=== PATIENT | female | born 1975 | race Caucasian/White ===

== ENCOUNTER → 2016-08-14 | Outpatient (CLI) | payer BC ==
[~2016-08-14] MED LIST: ACAR25TA9 PO; AMOX1TAB64 PO; CITA20TA9 PO; CYCL10TA50 PO; DICY20TA29 PO; DISU250T2 PO; ESTR1PAT10 TP; ESTR1PAT25 TD; ESZO3TAB9 PO; FLUO40CA9 PO; GABA300C10 PO; GADOBUTROL 10 MMOL/10 ML PFS ONE; HYDR-3240 PO; HYDR15SO3 PO; HYDR1TAB12 PO; LAMO25TA PO; LEVE250T28 PO; LEVE500T53 PO; LISI5TAB7 PO; LITH150C PO; LITH300T3 PO; LORA1TAB PO; MAGN100T6 PO; MAGNESIUM OTC; MED FOR RESTLESS LEG; MULT-658 PO; OMEP40CA6 PO; OXYC-302 PO; OXYC500S PO; PARO20TA4 PO; POTA20PI5 PO; POTASSIUM OTC; PROC10TA78 PO; PROM25TA10 PO; QUET100T4 PO; QUET400T4 PO; SULF1TAB24 PO; SUMA25TA4 PO; TRAM50TA2 PO; TRAZ50TA18 PO; UBID1CAP18 PO; VITA1TAB26 PO; ZOLP10TA PO; [UNRECOGNIZED DRUG - CODE] PO; [UNRECOGNIZED DRUG - OTHER]
== END | disposition home or self-care (01) ==
LOC: CFH 10:00
PROVIDERS: ATTEND Neurological Surgery
DX: D43.4 Neoplasm of uncertain behavior of spinal cord (principal); M48.05 Spinal stenosis, thoracolumbar region; M51.25 Other intervertebral disc displacement, thoracolumbar region; M47.895 Other spondylosis, thoracolumbar region
CPT/HCPCS: 72158; A9585

== ENCOUNTER 2017-06-18 18:45 | Emergency (ER) | payer BC ==
[~2017-06-18] VITALS: Ht 165.1 cm; Wt 94.2 kg
[~2017-06-18 18:45] MED LIST changes: +ESZO3TAB28 PO; -ESZO3TAB9 PO; -GADOBUTROL 10 MMOL/10 ML PFS ONE
[2017-06-18] MEDS ORDERED: KETOROLAC 30 MG/1 ML IM ONE (20:00)
[2017-06-18] MEDS ORDERED: METHOCARBAMOL 750 MG TABLET PO ONE (20:00)
[2017-06-18] MEDS ORDERED: HYDROcodone/APAP 5/325 TABLET PO ONE (20:00)
[2017-06-18] MEDS ORDERED: KETOROLAC 30 MG/1 ML ONE (20:08)
[2017-06-18] MEDS ORDERED: METHOCARBAMOL 750 MG TABLET ONE (20:08)
[2017-06-18] MEDS ORDERED: HYDROcodone/APAP 5/325 TABLET ONE (20:08)
[2017-06-18] MEDS ORDERED: HYDR25CA PO (20:24)
[2017-06-18] MEDS ORDERED: DULO30CA2 PO (20:24)
[2017-06-18] MEDS ORDERED: TOPAMAX PO (20:24)
[2017-06-18 20:41] LABS: BASOPHILS # (AUTO) 0.07 x10^3/uL (0-0.1); BASOPHILS % (AUTO) 1 % (0-1); EOSINOPHILS # (AUTO) 0.16 x10^3/uL (0-0.4); EOSINOPHILS % (AUTO) 2 % (1-7); LYMPHOCYTES # (AUTO) 2.68 x10^3/uL (1-3.4); LYMPHOCYTES % (AUTO) 29 % (22-44); MD NO; MEAN CORPUSCULAR HEMOGLOBIN 28.2 pg (27.0-34.8); MEAN CORPUSCULAR HGB CONC 32.9 g/dL (32.4-35.8); MEAN CORPUSCULAR VOLUME 85.9 fL (80-100); MEAN PLATELET VOLUME 6.7 fL (7.4-10.4); MONOCYTES # (AUTO) 0.62 x10^3/uL (0.2-0.8); MONOCYTES % (AUTO) 7 % (2-9); NEUTROPHILS % (AUTO) 61 % (42-75); PLATELET COUNT 331 x10^3/uL (130-400); RED BLOOD COUNT 4.14 x10^6/uL (3.82-5.3); RED CELL DISTRIBUTION WIDTH 20.2 % (9.6-15.2)
[2017-06-18 20:50] LABS: ANION GAP 8 mmol/L (5-15); CALCIUM 8.4 mg/dL (8.5-10.1); CHLORIDE 112 mmol/L (98-107); CREATININE 0.68 mg/dL (0.55-1.02)
[2017-06-18] MEDS ORDERED: GADOBUTROL 10 MMOL/10 ML PFS ONE (21:14)
[2017-06-18 22:15] VITALS: BP 127/79
== END 2017-06-18 22:23 | disposition home or self-care (01) ==
LOC: ED 22:21
DX: M51.16 Intervertebral disc disorders with radiculopathy, lumbar region (principal); K21.9 Gastro-esophageal reflux disease without esophagitis; E78.00 Pure hypercholesterolemia, unspecified; G43.909 Migraine, unspecified, not intractable, without status migrainosus; R20.0 Anesthesia of skin; R53.1 Weakness
CPT/HCPCS: 36415; 72110; 72158; 80048; 85025; 96372; 99285; A9585; J1885; J7512

== ENCOUNTER → 2017-07-26 | Outpatient (CLI) | payer BC ==
[~2017-07-26] MED LIST changes: +DULO30CA2 PO; +HYDR25CA PO; +TOPAMAX PO; +TRAZ-136 PO; -TRAZ50TA18 PO
== END | disposition home or self-care (01) ==
LOC: RAD 15:24
PROVIDERS: ATTEND Neurological Surgery
DX: Z01.812 Encounter for preprocedural laboratory examination (principal); M51.26 Other intervertebral disc displacement, lumbar region; R07.9 Chest pain, unspecified
CPT/HCPCS: 71046

== ENCOUNTER 2018-02-12 16:07 | Emergency (ER) | payer BC, OTHER ==
[~2018-02-12] VITALS: Ht 165.1 cm; Wt 92.3 kg
[~2018-02-12 16:07] MED LIST changes: -TRAZ-136 PO; +TRAZ50TA66 PO
[2018-02-12 16:19] VITALS: BP 146/104
[2018-02-12] MEDS ORDERED: HYDROmorphone 2 MG/ML, 1ML ONE (16:35)
[2018-02-12] MEDS ORDERED: PROMETHAZINE 25 MG/ML, 1ML ONE (16:35)
[2018-02-12] MEDS ORDERED: HYDROmorphone 1 MG/ML, 1ML IM ONE (17:00)
[2018-02-12] MEDS ORDERED: PROMETHAZINE 25 MG/ML, 1ML IM ONE (17:00)
[2018-02-12] MEDS ORDERED: HYDROmorphone 2 MG/ML, 1ML IVPush PRN (17:00)
[2018-02-12] MEDS ORDERED: GADOBUTROL 10 MMOL/10 ML PFS ONE (17:31)
== END 2018-02-12 19:00 | disposition home or self-care (01) ==
LOC: ED 17:46
DX: M51.36 Other intervertebral disc degeneration, lumbar region (principal); K21.9 Gastro-esophageal reflux disease without esophagitis; F31.9 Bipolar disorder, unspecified; G89.29 Other chronic pain; E78.00 Pure hypercholesterolemia, unspecified; G40.909 Epilepsy, unspecified, not intractable, without status epilepticus; F17.200 Nicotine dependence, unspecified, uncomplicated; Z90.89 Acquired absence of other organs; Z90.49 Acquired absence of other specified parts of digestive tract; Z90.710 Acquired absence of both cervix and uterus
CPT/HCPCS: 72158; 96372; 96374; 99284; A9585; J1170; J2550

== ENCOUNTER 2018-08-12 08:39 | Emergency (ER) | payer OTHER ==
[~2018-08-12] VITALS: Ht 165.1 cm; Wt 81.5 kg
[~2018-08-12 08:39] MED LIST changes: +CEFD300C37 PO; -HYDR1TAB12 PO; +HYDR1TAB13 PO; -LAMO25TA PO; +LAMO25TA9 PO
--- NOTE | 2018-08-12 09:10 | NUR ---
FIRST CONTACT WITH PT: Pt c/o "a cyst on my butt crack that is painful and causing pain to have a bowel movement." NADN. Pt requests to use the restroom UA cup provided. Pt ambulates with steady gait and balance to restroom and back to room. Pt provided gown and sheet. Call light within reach.
[2018-08-12] MEDS ORDERED: Vitamin D (09:27)
[2018-08-12] MEDS ORDERED: Potassium (09:27)
[2018-08-12] MEDS ORDERED: Wellbutrin (09:27)
[2018-08-12] MEDS ORDERED: [UNRECOGNIZED DRUG - OTHER] (09:27)
[2018-08-12] MEDS ORDERED: Lasix (09:27)
[2018-08-12] MEDS ORDERED: Iron (09:27)
[2018-08-12] MEDS ORDERED: SODIUM CHLORIDE FLUSH 10ML SYR IVF ONE (10:00)
[2018-08-12 10:23] LABS: MEAN CORPUSCULAR HEMOGLOBIN 30.9 pg (27.0-34.8); MEAN CORPUSCULAR HGB CONC 32.4 g/dL (32.4-35.8); MEAN CORPUSCULAR VOLUME 95.2 fL (80-100); MEAN PLATELET VOLUME 8.2 fL (7.4-10.4); PLATELET COUNT 227 x10^3/uL (130-400); RED BLOOD COUNT 4.39 x10^6/uL (3.82-5.3); RED CELL DISTRIBUTION WIDTH 23.5 % (9.6-15.2)
[2018-08-12 10:28] LABS: ALBUMIN 3.3 g/dL (3.4-5.0); ANION GAP 6 mmol/L (5-15); CALCIUM 9.3 mg/dL (8.5-10.1); CHLORIDE 107 mmol/L (98-107)
[2018-08-12 10:33] LABS: ALANINE AMINOTRANSFERASE 14 U/L (12-78); BILIRUBIN,TOTAL 0.3 mg/dL (0.2-1.0); CREATININE 0.79 mg/dL (0.55-1.02); TOTAL PROTEIN 7.3 g/dL (6.4-8.2)
[2018-08-12 10:40] LABS: ALKALINE PHOSPHATASE 71 U/L (45-117)
--- NOTE | 2018-08-12 10:46 | NUR ---
Pt transported on gurney to CT with both bedrails up and NADN.
[2018-08-12 10:53] LABS: BASOPHILS # (AUTO) 0.11 x10^3/uL (0-0.1); BASOPHILS % (AUTO) 1 % (0-1); EOSINOPHILS # (AUTO) 0.11 x10^3/uL (0-0.4); EOSINOPHILS % (AUTO) 1 % (1-7); LYMPHOCYTES # (AUTO) 1.55 x10^3/uL (1-3.4); LYMPHOCYTES % (AUTO) 14 % (22-44); MD SCAN; MONOCYTES % (AUTO) 7 % (2-9); NEUTROPHILS # (AUTO) 8.69 x10^3/uL (1.8-6.8); NEUTROPHILS % (AUTO) 77 % (42-75)
[2018-08-12] MEDS ORDERED: LIDOCAINE-MPF 1%, 2ML ONE (11:12)
[2018-08-12] MEDS ORDERED: HYDROmorphone 2 MG/ML, 1ML ONE (11:12)
[2018-08-12] MEDS ORDERED: LIDOCAINE 2%, 20ML SQ ONE (11:30)
[2018-08-12] MEDS ORDERED: HYDROmorphone 2 MG/ML, 1ML IM ONE (11:30)
--- NOTE | 2018-08-12 12:12 | NUR ---
Patient given discharge instructions and they have confirmed that they understand the instructions. Patient ambulatory with steady gait. Pt left with all d/c paperwork, prescription, and all personal belongings, and packing.
[2018-08-12 12:16] VITALS: BP 117/73
[2018-08-12] MEDS ORDERED: OMNIPAQUE 350 MG/ML, 100ML BOTTLE ONE (15:36)
== END 2018-08-12 12:18 | disposition home or self-care (01) ==
LOC: ED 10:46
DX: L05.01 Pilonidal cyst with abscess (principal); E78.00 Pure hypercholesterolemia, unspecified; G43.909 Migraine, unspecified, not intractable, without status migrainosus; G40.909 Epilepsy, unspecified, not intractable, without status epilepticus; K21.9 Gastro-esophageal reflux disease without esophagitis; Z90.49 Acquired absence of other specified parts of digestive tract
CPT/HCPCS: 10080; 36415; 72193; 80053; 84703; 85025; 99284; Q9967

== ENCOUNTER 2018-08-14 13:20 | Emergency (ER) | payer OTHER ==
[~2018-08-14] VITALS: Ht 165.1 cm; Wt 81.1 kg
[~2018-08-14 13:20] MED LIST changes: +Iron; +Lasix; +Potassium; +Vitamin D; +Wellbutrin; +[UNRECOGNIZED DRUG - OTHER]
[2018-08-14 13:44] VITALS: BP 136/95
--- NOTE | 2018-08-14 14:28 | NUR ---
WOUND CLEANSED AND BANDAGED W/ BACITRACIN DRESSING
== END 2018-08-14 14:31 | disposition home or self-care (01) ==
LOC: ED 14:30
DX: L02.415 Cutaneous abscess of right lower limb (principal); K21.9 Gastro-esophageal reflux disease without esophagitis; E78.00 Pure hypercholesterolemia, unspecified; G40.909 Epilepsy, unspecified, not intractable, without status epilepticus; Z90.49 Acquired absence of other specified parts of digestive tract
CPT/HCPCS: 99283

== ENCOUNTER 2018-09-23 15:51 | Emergency (ER) | payer OTHER ==
[~2018-09-23] VITALS: Ht 165.1 cm; Wt 79.0 kg
[2018-09-23] MEDS ORDERED: FAMOTIDINE 20 MG/2 ML IVP ONE (16:30)
[2018-09-23] MEDS ORDERED: SODIUM CHLORIDE 0.9% 1,000ML IVBOLUS ONE (16:30)
[2018-09-23] MEDS ORDERED: PROMETHAZINE 25 MG/ML, 1ML IM ONE (16:30)
[2018-09-23 16:41] LABS: BASOPHILS # (AUTO) 0.03 x10^3/uL (0-0.1); BASOPHILS % (AUTO) 1 % (0-1); EOSINOPHILS % (AUTO) 2 % (1-7); LYMPHOCYTES # (AUTO) 1.99 x10^3/uL (1-3.4); LYMPHOCYTES % (AUTO) 29 % (22-44); MD NO; MEAN CORPUSCULAR HEMOGLOBIN 32.5 pg (27.0-34.8); MEAN CORPUSCULAR HGB CONC 33.5 g/dL (32.4-35.8); MEAN CORPUSCULAR VOLUME 97.2 fL (80-100); MEAN PLATELET VOLUME 7.3 fL (7.4-10.4); MONOCYTES # (AUTO) 0.55 x10^3/uL (0.2-0.8); MONOCYTES % (AUTO) 8 % (2-9); NEUTROPHILS # (AUTO) 4.13 x10^3/uL (1.8-6.8); NEUTROPHILS % (AUTO) 61 % (42-75); PLATELET COUNT 169 x10^3/uL (130-400); RED BLOOD COUNT 4.33 x10^6/uL (3.82-5.3)
[2018-09-23 16:53] LABS: ALBUMIN 3.6 g/dL (3.4-5.0); ANION GAP 13 mmol/L (5-15); CALCIUM 9.3 mg/dL (8.5-10.1); CHLORIDE 103 mmol/L (98-107); CREATININE 0.67 mg/dL (0.55-1.02)
--- NOTE | 2018-09-23 17:45 | NUR ---
PATENT ENGINEER: PT TO ROOM FROM [facility]UC[facility]
--- NOTE | 2018-09-23 18:00 | NUR ---
"I'VE BEEN VOMITING SINCE LAST SUNDAY. I'VE VOMITED 3 TIMES AND A LOT OF DIARRHEA IN THE LAST 24 HOURS. I CAN'T COUNT HOW MANY TIMES I HAD DIARRHEA." DENIES RECENT ABX USE/TRAVEL OR HX OF INFECTIPIUS DIARRHEA HR 120, TEMP 99. PLACED ON MONITOR TO PLACE PIV SHORTLY
[2018-09-23] MEDS ORDERED: PROMETHAZINE 25 MG/ML, 1ML ONE (18:10)
[2018-09-23] MEDS ORDERED: FAMOTIDINE 20 MG/2 ML ONE (18:10)
--- NOTE | 2018-09-23 18:29 | NUR ---
PIV STARTED-MEDICATED PER EMAR VITALS UPDATED-HR NOW 80 PROVIDED WITH ESTIMATED POC
--- NOTE | 2018-09-23 18:39 | NUR ---
STOOL SAMPLE COLLECTED, PATIENT UNABLE TO VOID
--- NOTE | 2018-09-23 18:55 | NUR ---
REPORT TO RUIZ CATALAN
--- NOTE | 2018-09-23 18:56 | NUR ---
ASSUMED CARE OF PATIENT.
--- NOTE | 2018-09-23 18:59 | NUR ---
PT REQUESTING PAIN MEDS FOR LEFT SIDED NECK, SHOULDER PAIN. DR SARMIENTO AWARE. AWAITING NEW ORDERS.
[2018-09-23] MEDS ORDERED: CYCLOBENZAPRINE 10 MG TABLET PO ONE (19:00)
[2018-09-23] MEDS ORDERED: KETOROLAC 30 MG/1 ML IM ONE (19:00)
[2018-09-23] MEDS ORDERED: CYCLOBENZAPRINE 10 MG TABLET ONE (19:06)
--- NOTE | 2018-09-23 19:59 | NUR ---
PT IS REFUSING TO GIVE UA. DR SARMIENTO AWARE. MD TO SEE PATIENT. VS STABLE. PT REPORTS SHE IS FEELING BETER AFTER THE FLEXERIL. WILL CONTINUE TO MONITOR.
[2018-09-23 20:13] LABS: CLOSTRIDIUM DIFFICILE ANTIGEN POSITIVE; CLOSTRIDIUM DIFFICILE TOXIN NEGATIVE (Negative)
[2018-09-23] MEDS ORDERED: POTASSIUM CHLORIDE 20 MEQ TAB.ER.PRT ONE (20:15)
[2018-09-23 20:17] VITALS: BP 150/92
--- NOTE | 2018-09-23 20:20 | NUR ---
DR SARMIENTO IN ROOM UPDATING PATIENT.
[2018-09-23] MEDS ORDERED: POTASSIUM CHLORIDE 20 MEQ TAB.ER.PRT PO ONE (20:30)
== END 2018-09-23 20:55 | disposition home or self-care (01) ==
LOC: ED 20:48
DX: R19.7 Diarrhea, unspecified (principal); R11.2 Nausea with vomiting, unspecified; F17.200 Nicotine dependence, unspecified, uncomplicated; E78.5 Hyperlipidemia, unspecified; E78.00 Pure hypercholesterolemia, unspecified; G43.909 Migraine, unspecified, not intractable, without status migrainosus; G40.909 Epilepsy, unspecified, not intractable, without status epilepticus; Z90.49 Acquired absence of other specified parts of digestive tract; Z90.710 Acquired absence of both cervix and uterus
CPT/HCPCS: 36415; 80048; 82040; 85025; 87324; 87493; 93005; 96361; 96372; 96374; 99284; J2550; J3490; J7030